=== PATIENT | female | born 2000 | race Caucasian/White ===

== ENCOUNTER 2023-12-21 08:00 | Outpatient (CLI) | payer OTHER ==
--- NOTE | 2023-12-21 16:49 | XRAY Report ---
PROCEDURE: Elbow 3+V RT INDICATIONS: OTHER SPRAIN OF RIGHT ELBOW TECHNIQUE: 3 views of the elbow were acquired. COMPARISON: None. FINDINGS: Bones: No fractures or dislocations. No suspicious bony lesions. Soft tissues: No effusion. No suspicious soft tissue calcifications or masses. IMPRESSION: No acute bony abnormality. Reviewed by: Jose Raul White MD on 12/21/2023 4:48 PM PST Approved by: Jose Raul White MD on 12/21/2023 4:48 PM PST Station ID: [id number]
== END 2023-12-21 23:59 | disposition home or self-care (01) ==
LOC: DI.N 08:00
PROVIDERS: ATTEND Physician Assistant
DX: S53.491A Other sprain of right elbow, initial encounter (principal)